=== PATIENT | female | born 1990 | race Hispanic/Latino ===

== ENCOUNTER → 2019-05-20 | Outpatient (CLI) | payer SELFPAY ==
[~2019-05-20] MED LIST: DROS1TAB3 PO; METF-444 PO; THYR15TA9 PO
== END | disposition home or self-care (01) ==
LOC: RAH 09:46
PROVIDERS: ATTEND Obstetrics & Gynecology
DX: N83.202 Unspecified ovarian cyst, left side (principal)
CPT/HCPCS: 36415; 76830; 82670

== ENCOUNTER → 2019-06-03 | Outpatient (CLI) | payer SELFPAY | END | disposition home or self-care (01) | LOC: RAH 15:59 | PROVIDERS: ATTEND Obstetrics & Gynecology | DX: Z31.89 Encounter for other procreative management (principal); N85.8 Other specified noninflammatory disorders of uterus | CPT/HCPCS: 76830 ==